=== PATIENT | female | born 1980 | race Caucasian/White ===

== ENCOUNTER 2016-10-21 23:26 | Emergency (ER) | payer MEDICAID, OTHER ==
[2016-10-21 23:50] VITALS: O2SAT 99
[2016-10-22 00:41] LABS: RBC URINE 7623 /hpf (0-3); URINE BILIRUBIN NEGATIVE (NEGATIVE); URINE BLOOD 2+ (NEGATIVE); URINE COLOR Red (YELLOW); URINE GLUCOSE (UA) NORMAL (Normal); URINE KETONE NEGATIVE (NEGATIVE); URINE LEUKOCYTE ESTERASE 2+ Leu/uL (Negative); URINE PROTEIN 2+ mg/dL (NEGATIVE); URINE UROBILINOGEN NORMAL mg/dL (0.2-1.0); WBC CLUMPS MANY /hpf; WBC URINE 840 /hpf (0-5)
--- NOTE | 2016-10-22 01:14 | C.PDOC ---
History Of Present Illness 36 yo female w/o significant PMHx come in for evaluation of pain on urination, urinary frequency, hesitancy for past 3 days. Today, noted blood in urine associated with diffuse lower back pain. Otherwise, pt denies fver, chills, sore throat, abd. pain, N/V/D, denies vaginal irritation or discharges. Ambulate to ED for evaluation, not in any apparent distress. Pt denies hx of frequent UTI. Time Seen by Provider: 10/21/16 23:51 Chief Complaint (Nursing): Female Genitourinary Past Medical History Vital Signs: Last Vital Signs Temp 98.7 F 10/22/16 01:22 Pulse 81 10/22/16 01:22 Resp 20 10/22/16 01:22 BP 109/71 10/22/16 01:22 Pulse Ox 99 10/22/16 01:22 Family History: States: Unknown Family Hx - Social History Hx Alcohol Use: No Hx Substance Use: No - Immunization History Hx Tetanus Toxoid Vaccination: No Hx Influenza Vaccination: No Hx Pneumococcal Vaccination: No Physical Exam - Physical Exam Appears: Well, Non-toxic, No Acute Distress Skin: Normal Color, Warm, Dry Eye(s): bilateral: Normal Inspection Nose: Normal, No Discharge Oral Mucosa: Moist, No Drooling Tongue: Normal Appearing Lips: Normal Appearing Throat: Normal, No Erythema, No Exudate, No Drooling Neck: Normal, Normal ROM, Supple Cardiovascular: Rhythm Regular Respiratory: Normal Breath Sounds, No Stridor, No Wheezing Gastrointestinal/Abdominal: Bowel Sounds (normal), Soft, Tenderness (mild suprapubic tenderness), No Distention, No Guarding, No Rebound Back: Normal Inspection, No CVA Tenderness Extremity: Normal ROM, No Pedal Edema Neurological/Psych: Oriented x3, Normal Speech ED Course And Treatment O2 Sat by Pulse Oximetry: 99 Pulse Ox Interpretation: Normal Progress Note: n re-evaluation, pt is afebrile, hemodynamicaly stable. Non- toxic. Tolerate Po well in ED. Neck: (-) mmeningeal sign. ENT: no acute finidngs. Abd: benign, (-) guaridng, (-) rebound. Back: (-) CVA tenderness. Neurologicaly intact. Urinalysis review and c/w UTI. Pt advised. ref. to F/U with PMD and Ortho in 2-3 days for re-eavl. return if any new changes. Disposition Counseled Patient/Family Regarding: Studies Performed, Diagnosis, Need For Followup, Rx Given - Disposition Referrals: [facility] [Outside] [facility] [Outside] Disposition: HOME/ ROUTINE Disposition Time: 01:11 Condition: STABLE Additional Instructions: Encourage fluids Cranberry supplement Take medication as prescribed Follow up with PMD, [facility] in 2-3 days for re-evaluation. Return to ED if any worsening or new changes. Prescriptions: Ciprofloxacin [Cipro] 1 tab PO BID #14 tab Phenazopyridine HCl [Pyridium] 100 mg PO BID #6 tablet Instructions: Urinary Tract Infection in Women (ED) - Clinical Impression Clinical Impression: UTI (urinary tract infection)
[2016-10-22 01:23] VITALS: BP 109/71; PULSE 81; RESP 20; TEMP 98.7
== END 2016-10-22 01:23 | disposition home or self-care (01) ==
LOC: C.ER 23:26
DX: N39.0 Urinary tract infection, site not specified (principal)